=== PATIENT | female | born 2000 | race Caucasian/White ===

== ENCOUNTER 2024-04-13 08:36 | Outpatient (REF) | payer OTHER, SELFPAY ==
--- OUTSIDE RECORDS SUMMARY | 2024-04-13 08:48 | XMS_ITS | Clinical Summary ---
Author Organization [employer] Address [address] [place] [address] Care Team Providers Care Family Services Coordinator Name Role Phone Yves Sands MD Primary Care Provider Surgical History Surgery Date Site/Laterality Comments OTHER SURGICAL HISTORY PROCEDURE: DENIES PREVIOUS SURGERY Medical History Medical History Date Comments Obesity DX:Obesity History of chlamydia DX:History of chlamydia Family History Relation Name Status Comments Father Alive Mother Alive Social History Tobacco Use Types Packs/Day Years Used Date Smoking Tobacco: Never Smokeless Tobacco: Never Alcohol Use Standard Drinks/Week Comments Not Currently 0 (1 standard drink = 0.6 oz pur e alcohol) Comments Unknown Sex and Gender Information Value Date Recorded Sex Assigned at Not on file Legal Sex Female 11:19 PM EDT Gender Identity Female 10/23/2021 11:24 PM EDT Sexual Orientation Straight 10/23/2021 11 :24 PM EDT Obstetrics History Last Filed Vital Signs Vital Sign Reading Time Taken Comments Blood Pressure 136/86 03/13/2022 2:54 PM EST Pulse 93 03/13/2022 2:54 PM EST Temperature - - Respiratory Rate - - Oxygen Saturation - - Inhaled Oxygen Concentration - - Weight 77 kg (169 lb 12.8 oz) 03/13/2022 2:54 PM EST Height 152.4 cm (5') 03/13/2022 2:54 PM EST Body Mass Index 33.16 03/13/2022 2:54 PM EST Plan of Treatment Health Maintenance Due Date Last Done Comments Gonorrhea/Chlamydia Screening 2001 HPV Vaccines (1 - 3-dose series) 01/09/2016 Meningococcal B Vacine (1 of 2 - Standard) 2017 Hepatitis B Vaccines (1 of 3 - 19+ 3-dose series) 01/09/2020 Depression Screening 10/24/2021 HIV Screening 10/24/2021 Hepatitis C Screening 10/24/2021 Social Influencers of Health Screening 10/24/2021 Cervical Cancer Screening: P ap Smear 2022 COVID-19 Vaccine (1 - 2023-2 5 season) 2023 Influenza Vaccine (#1) 2023 04/04/2021 DTaP,Tdap,and Td Vaccines (2 - Td or Tdap) 04/04/2031 04/04/2021 HIB Vaccines Aged Out No longer eligi ble based on patient's age to complete this topic Hepatitis A Vaccines Aged Out No long er eligible based on patient's age to complete this topic IPV Vaccines Aged Out No longer eligi ble based on patient's age to complete this topic MMR Vaccines Aged Out No longer eligi ble based on patient's age to complete this topic Meningococcal ACWY Vaccine Aged Out N o longer eligible based on patient's age to complete this topic Pneumococcal Vaccine: Pediat rics (0 to 5 Years) and At-Risk Patients (6 to 64 Years) Aged Out No longer eligi ble based on patient's age to complete this topic RSV Immunization Patients Un milady 20 months Aged Out No longer eligible b ased on patient's age to complete this topic Varicella Vaccines Aged Out No longer eligible based on patient's age to complete this topic Care Teams Family Services Coordinator Relationship Specialty Start Date End Date Yves Sands MD PCP - General Internal Medicine 12/27/20
[2024-04-14 09:49] LABS: Lyme Abs Screen <0.90 index
== END 2024-04-13 08:37 | disposition home or self-care (01) ==
LOC: HO.LAB 08:36
PROVIDERS: PCP Physician Assistant Medical; Visit Provider Psychiatry & Neurology Neurology
DX: G43.909 Migraine, unspecified, not intractable, without status migrainosus (principal); Z86.69 Personal history of other diseases of the nervous system and sense organs
CPT/HCPCS: 36415; 86617; 86618